=== PATIENT | male | born 1970 ===

== ENCOUNTER 2018-12-30 11:24 | Emergency (ER) | payer OTHER ==
[2018-12-30 11:30] VITALS: BP 118/49; PULSE 61; RESP 18; TEMP 98; O2SAT 100
--- NOTE | 2018-12-30 11:51 | C.PDOC ---
History Of Present Illness 48 year old male presents to ED with complaint of right upper first pre-molar pain for the past 4-5 days. Patient states that he saw his dentist 1 day ago and was given a prescription for amoxicillin and Motrin. Patient says the pain is still bad and that prompted his visit to the ED. He denies fever, chills, numbness, or weakness. Time Seen by Provider: 12/30/18 11:37 Chief Complaint (Nursing): Dental Pain History Per: Patient History/Exam Limitations: no limitations Onset/Duration Of Symptoms: Days (4-5) Current Symptoms Are (Timing): Still Present Quality: Positive for: "Pain" Past Medical History Reviewed: Historical Data, Nursing Documentation, Vital Signs Vital Signs: Last Vital Signs Temp 98.0 F 12/30/18 11:25 Pulse 61 12/30/18 11:25 Resp 18 12/30/18 11:25 BP 118/49 L 12/30/18 11:25 Pulse Ox 100 12/30/18 11:25 Primary Care Provider: Non [facility] Provider, - Medical History PMH: No Chronic Diseases Surgical History: No Surg Hx Family History: States: Unknown Family Hx - Social History Hx Tobacco Use: Yes (heavy smoker) Hx Alcohol Use: Yes Hx Substance Use: No - Immunization History Hx Tetanus Toxoid Vaccination: No Hx Influenza Vaccination: No Hx Pneumococcal Vaccination: No Review Of Systems Constitutional: Negative for: Fever, Chills, Weakness ENT: Positive for: Mouth Pain (right upper first pre-molar ). Negative for: Mouth Swelling, Throat Pain Respiratory: Negative for: Cough, Shortness of Breath Neurological: Negative for: Weakness, Numbness Physical Exam - Physical Exam Appears: Well, Non-toxic, No Acute Distress Skin: Normal Color, Warm, Dry Head: Atraumatic, Normacephalic Eye(s): bilateral: Normal Inspection, PERRL, EOMI Ear(s): Bilateral: Normal Oral Mucosa: Moist, No Trismus Tongue: Normal Appearing, No Swelling Teeth: Other (crack to the right upper first pre-molar) Gingiva: Normal Appearing, No Swelling, No Tender Throat: Normal, No Erythema, No Exudate Neck: Normal ROM, Supple Chest: Symmetrical Cardiovascular: Rhythm Regular, No Murmur Respiratory: No Accessory Muscle Use, No Rales, No Rhonchi, No Wheezing Neurological/Psych: Oriented x3, Normal Speech, Normal Cognition ED Course And Treatment O2 Sat by Pulse Oximetry: 100 (in RA) Pulse Ox Interpretation: Normal Medical Decision Making Medical Decision Making: Initial Plan: Percocet PO Patient states that he has an appointment for a root canal in the next 3-4 days. Disposition - Disposition Referrals: Teddy Faustin DMD [Staff Provider] - Disposition: HOME/ ROUTINE Disposition Time: 12:30 Condition: GOOD Additional Instructions: Follow up with the dentist within 1-2 days. Return if worsened. Prescriptions: oxyCODONE/Acetaminophen [Percocet 5/325 mg Tab] 1 tab PO QID PRN #15 tab PRN Reason: Pain Instructions: Dental Pain (DC) Forms: [facility] ([place]) - Clinical Impression Clinical Impression: Dental caries - PA / P[facility]EWARD / Resident Statement MD/DO has reviewed & agrees with the documentation as recorded. (Patricia Kearney) - Scribe Statement The provider has reviewed the documentation as recorded by the Scribe (Patricia Kearney) All medical record entries made by the Scribe were at my direction and personally dictated by me. I have reviewed the chart and agree that the record accurately reflects my personal performance of the history, physical exam, medical decision making, and the department course for this patient. I have also personally directed, reviewed, and agree with the discharge instructions and disposition.
[2018-12-30] MEDS ORDERED: Oxycodone/Acetaminophen 5/325 mg Tab PO STA (11:54)
[2018-12-30] MEDS ORDERED: Oxycodone/Acetaminophen 5/325 mg Tab ONE (12:02)
== END 2018-12-30 12:07 | disposition home or self-care (01) ==
LOC: C.ER 11:24
DX: K02.9 Dental caries, unspecified (principal)